=== PATIENT | male | born 1985 | race African-American/Black ===

== ENCOUNTER 2017-08-05 18:14 | Emergency (ER) | payer OTHER, BC ==
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
[2017-08-05] MEDS ORDERED: MOTRIN PO ONE (21:02)
[2017-08-05 22:03] VITALS: BP 126/82
== END 2017-08-05 21:57 | disposition home or self-care (01) ==
LOC: ED 18:14
DX: S39.012A Strain of muscle, fascia and tendon of lower back, initial encounter (principal); S13.4XXA Sprain of ligaments of cervical spine, initial encounter; V89.2XXA Person injured in unspecified motor-vehicle accident, traffic, initial encounter; Y93.89 Activity, other specified; Y92.89 Other specified places as the place of occurrence of the external cause; Y99.8 Other external cause status
CPT/HCPCS: 99282

== ENCOUNTER 2020-03-16 04:56 | Emergency (ER) | payer BC ==
[2020-03-16] MEDS ORDERED: ACETAMINOPHEN 325 MG TAB ONE (05:09)
[2020-03-16] MEDS ORDERED: ACETAMINOPHEN 325 MG TAB PO ONE (05:10)
[2020-03-16 05:18] VITALS: BP 120/86
== END 2020-03-16 05:18 | disposition left against medical advice (07) ==
LOC: ED 04:56
DX: R07.81 Pleurodynia (principal); Z53.21 Procedure and treatment not carried out due to patient leaving prior to being seen by health care provider